=== PATIENT | female | born 1990 ===

== ENCOUNTER 2017-11-25 11:12 | Emergency (ER) | payer MEDICAID, OTHER ==
[2017-11-25 12:33] LABS: Urine Appearance Clear; Urine Blood Negative (Negative); Urine Color Yellow; Urine Ketones Negative (Negative); Urine Protein Negative (Negative); Urine Specific Gravity 1.013 (1.010-1.030); Urine Urobilinogen Negative (Negative)
[2017-11-25 13:12] LABS: ABS Basophils 0 10^3/ul (0-0.2); ABS Eosinophils 0.1 10^3/ul (0-0.6); ABS Lymphocytes 1.4 10^3/ul (1.0-4.8); ABS Monocytes 0.5 10^3/ul (0-0.8); ABS Neutrophils 3.9 10^3/ul (1.5-7.7); ABS Nucleated RBC 0 10^3/ul; Eosinophil % 1.5 % (0-6); Hematocrit 42 % (35-47); Lymphocyte % 23.4 % (25-47); Mean Corpuscular HGB Conc 34 g/dl (31-36); Mean Corpuscular Hemoglobin 30 pg (27-31); Mean Corpuscular Volume 90 fL (80-97); Mean Platelet Volume 10.9 um3 (7.4-10.4); Nucleated Red Blood Cells % 0.1; Platelet Count 156 10^3/ul (150-450); Red Blood Count 4.62 10^6/ul (4.0-5.4); Red Cell Distribution Width 13 % (10.5-15); White Blood Count 5.8 10^3/ul (3.5-10.8)
--- NOTE | 2017-11-25 14:47 | PN ---
ED Flex Patient Progress Note Date of Service: 11/25/17 Subjective: ED Flex day #1 for this 27 y.o. female with a history of alcohol dependence and depression who is a resident of the [facility] [[email or web address] inpatient substance abuse facility in [place] who apparently made suicidal statements to staff at rehab. Objective: Depressed white female with passive SI Assessment: Unspecified Depressive DO Plan: Patient is appropriate for admission but we have no beds available. Will explore transfer to another facility. Vital Signs Temp Pulse Resp BP Pulse Ox 98.1 F 91 16 115/79 100 11/25/17 11:15 11/25/17 11:15 11/25/17 11:15 11/25/17 11:15 11/25/17 11:15 Lab Results - Entire Visit 11/25/17 11/25/17 11/25/17 12:59 12:59 12:05 WBC 5.8 RBC 4.62 Hgb 14.0 Hct 42 MCV 90 MCH 30 MCHC 34 RDW 13 Plt Count 156 MPV 10.9 H Neut % (Auto) 66.6 Lymph % (Auto) 23.4 L [place] % (Auto) 8.0 H Eos % (Auto) 1.5 Baso % (Auto) 0.5 Absolute Neuts (auto) 3.9 Absolute Lymphs (auto) 1.4 Absolute Monos (auto) 0.5 Absolute Eos (auto) 0.1 Absolute Basos (auto) 0 Absolute Nucleated RBC 0 Nucleated RBC % 0.1 Sodium 138 L Potassium 3.7 Chloride 104 Carbon Dioxide 24 Anion Gap 10 BUN 8 Creatinine 0.78 Est GFR ( Amer) 115.7 Est GFR (Non-Af Amer) 90.0 BUN/Creatinine Ratio 10.3 Glucose 115 H Calcium 9.1 Total Bilirubin 0.70 AST 14 ALT 15 Alkaline Phosphatase 54 Total Protein 6.7 Albumin 4.2 Globulin 2.5 Albumin/Globulin Ratio 1.7 TSH 2.43 Beta HCG, Quant < 0.60 Urine Color Yellow Urine Appearance Clear Urine pH 6.0 Ur Specific [place] 1.013 Urine Protein Negative Urine Ketones Negative Urine Blood Negative Urine Nitrate Negative Urine Bilirubin Negative Urine Urobilinogen Negative Ur Leukocyte Esterase Negative Urine Glucose Negative Urine Ascorbic Acid * A Salicylates < 2.50 Urine Opiates Screen Acetaminophen < 15 Ur Barbiturates Screen Ur Phencyclidine Scrn Ur Amphetamines Screen U Benzodiazepines Scrn Urine Cocaine Screen U Cannabinoids Screen Serum Alcohol < 10 11/25/17 12:05 WBC RBC Hgb Hct MCV MCH MCHC RDW Plt Count MPV Neut % (Auto) Lymph % (Auto) [place] % (Auto) Eos % (Auto) Baso % (Auto) Absolute Neuts (auto) Absolute Lymphs (auto) Absolute Monos (auto) Absolute Eos (auto) Absolute Basos (auto) Absolute Nucleated RBC Nucleated RBC % Sodium Potassium Chloride Carbon Dioxide Anion Gap BUN Creatinine Est GFR ( Amer) Est GFR (Non-Af Amer) BUN/Creatinine Ratio Glucose Calcium Total Bilirubin AST ALT Alkaline Phosphatase Total Protein Albumin Globulin Albumin/Globulin Ratio TSH Beta HCG, Quant Urine Color Urine Appearance Urine pH Ur Specific [place] Urine Protein Urine Ketones Urine Blood Urine Nitrate Urine Bilirubin Urine Urobilinogen Ur Leukocyte Esterase Urine Glucose Urine Ascorbic Acid Salicylates Urine Opiates Screen None detected Acetaminophen Ur Barbiturates Screen None detected Ur Phencyclidine Scrn None detected Ur Amphetamines Screen None detected U Benzodiazepines Scrn None detected Urine Cocaine Screen None detected U Cannabinoids Screen None detected Serum Alcohol
--- NOTE | 2017-11-25 15:16 | ED ---
Mara Rosen Thomas, scribed for Phillip Denis MD on 11/25/17 at 1203 . Psychiatric Complaint <Miesha Orosco - Last Filed: 11/25/17 15:10> - HPI Summary HPI Summary: The patient is a 27 with a history of anxiety and depression presenting from [facility]. She complains of suicidal thoughts that worsened last night. She has a plan to use something sharp to commit suicide. She denies any recent alcohol or drug intake. She is on Effexor. - History Of Current Complaint Hx Obtained From: Patient Onset/Duration: Still Present, Worse Since - last night Timing: Intermittent Episode Lasting Severity Currently: Moderate Character: Depressed, Anxious Aggravating Factor(s): Nothing Alleviating Factor(s): Nothing Related History: Positive For: Prior Psychiatric Issues Has Suicidal: Reports: Thoughts, With A Plan Ingestion History: Type/Name Of Drug - of ETOH abuse but no recent alcohol intake <Phillip Denis - Last Filed: 11/25/17 15:16> - History Of Current Complaint Chief Complaint: EDMentalHealth Time Seen by Provider: 11/25/17 11:17 - Allergies/Home Medications Allergies/Adverse Reactions: Allergies Allergy/AdvReac Type Severity Reaction Status Date / Time No Known Allergies Allergy Verified 11/25/17 11:16 Home Medications: Home Medications Acetaminophen TAB* [Tylenol TAB*] 325 mg PO Q6H PRN MDD 3,500mg 11/25/17 [ History Confirmed 11/25/17] Aspirin EC TAB* [Ecotrin EC TAB*] 325 mg PO DAILY 11/25/17 [History Confirmed ] Bismuth Subsalicylate [Bismuth] 262 mg PO Q30M MDD 8 tablets 11/25/17 [History Confirmed 11/25/17] Calcium Carbonate CHEW TAB* [Tums*] 500 - 1,000 mg PO BID MDD 8 tablets [History Confirmed 11/25/17] Docusate CAP* [Colace Cap*] 100 mg PO BID PRN 11/25/17 [History Confirmed ] Eucalyptus/Menthol [Garza Cough Drops] 1 aby PO Q2H PRN 11/25/17 [History Confirmed 11/25/17] Ibuprofen TAB* [Advil TAB*] 200 mg PO Q6H PRN 11/25/17 [History Confirmed ] Magnesium Hydroxide LIQ* [Milk of Magnesia LIQ*] 60 ml PO DAILY PRN 11/25/17 [ History Confirmed 11/25/17] Melatonin (NF) [Meladox] 5 mg PO BEDTIME PRN 11/25/17 [History Confirmed ] Multivitamins/Minerals TAB* [Theragran/minerals TAB*] 1 tab PO DAILY 11/25/17 [ History Confirmed 11/25/17] Naltrexone INJ [Vivitrol INJ] 380 mg IM MONTHLY 11/25/17 [History Confirmed ] Nicotine GUM* 2 mg PO Q4H PRN 11/25/17 [History Confirmed 11/25/17] Nicotine PATCH 14 MG/24 HR* 14 mg TRANSDERM QAM 11/25/17 [History Confirmed ] Polyethylene Glycol 3350* [Miralax*] 17 gm PO DAILY PRN 11/25/17 [History Confirmed 11/25/17] Ranitidine TAB (NF) [Zantac TAB (NF)] 300 mg PO QPM 11/25/17 [History Confirmed 11/25/17] Saline NASAL SPRAY 0.65%* [Sodium Chloride 0.65% Nasal [place]*] 1 - 2 spray BOTH NARES Q4H PRN 11/25/17 [History Confirmed 11/25/17] Venlafaxine EXT RELEASE CAP* [Effexor Xr CAP*] 150 mg PO BEDTIME 11/25/17 [ History Confirmed 11/25/17] diPHENhydraMINE PO* [Benadryl PO 25 MG TAB*] 25 - 50 mg PO Q6H PRN 11/25/17 [ History Confirmed 11/25/17] guaiFENesin ER TAB [Mucinex*] 600 - 1,200 mg PO BID PRN 11/25/17 [History Confirmed 11/25/17] PMH/Surg Hx/FS Hx/Imm Hx Opthamlomology History: Denies: Hx Legally Blind EENT History: Denies: Hx Deafness Psychiatric History: Reports: Hx Anxiety, Hx Depression Infectious Disease History: No Infectious Disease History: Denies: Traveled Outside the [place] in Last 30 Days - Family History Known Family History: Positive: Other - Patient denies relevant FHx - Social History Occupation: Unemployed Lives: [facility] - [facility] Alcohol Use: in rehab Substance Use Type: Reports: Marijuana Substance Use Comment - Amount & Last Used: rarely Smoking Status (MU): Current Every Day Smoker <Phillip Denis - Last Filed: 11/25/17 15:16> Review of Systems Negative: Fever Positive: Other - Suicidal ideation with a plan All Other Systems Reviewed And Are Negative: Yes <Phillip Denis - Last Filed: 11/25/17 15:16> Physical Exam Vital Signs On Initial Exam: Initial Vitals Temp Pulse Resp BP Pulse Ox 98.1 F 91 16 115/79 100 11/25/17 11:15 11/25/17 11:15 11/25/17 11:15 11/25/17 11:15 11/25/17 11:15 <Miesha Orosco Chela - Last Filed: 11/25/17 15:10> - Summary Physical Exam Summary: General: well-appearing, no pain distress Skin: warm, color reflects adequate perfusion, dry Head: normal Eyes: EOMI, VIOLETTA ENT: normal Neck: supple, nontender Respiratory: CTA, breath sounds present Cardiovascular: RRR Abdomen: soft, nontender Bowel: present Musculoskeletal: normal, strength/ROM intact Neurological: normal, sensory/motor intact, A&O x3 Psychological: Suicidal ideation with a plan Triage Information Reviewed: Yes Vital Signs On Initial Exam: Initial Vitals Temp Pulse Resp BP Pulse Ox 98.1 F 91 16 115/79 100 11/25/17 11:15 11/25/17 11:15 11/25/17 11:15 11/25/17 11:15 11/25/17 11:15 Vital Signs Reviewed: Yes <Phillip Denis - Last Filed: 11/25/17 15:16> Diagnostics - Vital Signs Vital Signs Temp Pulse Resp BP Pulse Ox 11/25/17 11:15 98.1 F 91 16 115/79 100 - Laboratory Lab Results: Lab Results 11/25/17 11/25/17 11/25/17 Range/Units 12:05 12:05 12:59 WBC (3.5-10.8) 10^3/ul RBC (4.0-5.4) 10^6/ul Hgb (12.0-16.0) g/dl Hct (35-47) % MCV (80-97) fL MCH (27-31) pg MCHC (31-36) g/dl RDW (10.5-15) % Plt Count (150-450) 10^3/ul MPV (7.4-10.4) um3 Neut % (Auto) (38-83) % Lymph % (Auto) (25-47) % [place] % (Auto) (0-7) % Eos % (Auto) (0-6) % Baso % (Auto) (0-2) % Absolute Neuts (auto) (1.5-7.7) 10^3/ul Absolute Lymphs (auto) (1.0-4.8) 10^3/ul Absolute Monos (auto) (0-0.8) 10^3/ul Absolute Eos (auto) (0-0.6) 10^3/ul Absolute Basos (auto) (0-0.2) 10^3/ul Absolute Nucleated RBC 10^3/ul Nucleated RBC % Sodium 138 L (139-145) mmol/L Potassium 3.7 (3.5-5.0) mmol/L Chloride 104 (101-111) mmol/L Carbon Dioxide 24 (22-32) mmol/L Anion Gap 10 (2-11) mmol/L BUN 8 (6-24) mg/dL Creatinine 0.78 (0.51-0.95) mg/dL Est GFR ( Amer) 115.7 (>60) Est GFR (Non-Af Amer) 90.0 (>60) BUN/Creatinine Ratio 10.3 (8-20) Glucose 115 H (70-100) mg/dL Calcium 9.1 (8.6-10.3) mg/dL Total Bilirubin 0.70 (0.2-1.0) mg/dL AST 14 (13-39) U/L ALT 15 (7-52) U/L Alkaline Phosphatase 54 (34-104) U/L Total Protein 6.7 (6.4-8.9) g/dL Albumin 4.2 (3.2-5.2) g/dL Globulin 2.5 (2-4) g/dL Albumin/Globulin Ratio 1.7 (1-3) TSH 2.43 (0.34-5.60) mcIU/mL Beta HCG, Quant < 0.60 mIU/mL Urine Color Yellow Urine Appearance Clear Urine pH 6.0 (5-9) Ur Specific [place] 1.013 (1.010-1.030) Urine Protein Negative (Negative) Urine Ketones Negative (Negative) Urine Blood Negative (Negative) Urine Nitrate Negative (Negative) Urine Bilirubin Negative (Negative) Urine Urobilinogen Negative (Negative) Ur Leukocyte Esterase Negative (Negative) Urine Glucose Negative (Negative) Urine Ascorbic Acid * A (Negative) Salicylates < 2.50 (<30) mg/dL Urine Opiates Screen None detected (None Detect) Acetaminophen < 15 mcg/mL Ur Barbiturates Screen None detected (None Detect) Ur Phencyclidine Scrn None detected (None Detect) Ur Amphetamines Screen None detected (None Detect) U Benzodiazepines Scrn None detected (None Detect) Urine Cocaine Screen None detected (None Detect) U Cannabinoids Screen None detected (None Detect) Serum Alcohol < 10 (<10) mg/dL 11/25/17 Range/Units 12:59 WBC 5.8 (3.5-10.8) 10^3/ul RBC 4.62 (4.0-5.4) 10^6/ul Hgb 14.0 (12.0-16.0) g/dl Hct 42 (35-47) % MCV 90 (80-97) fL MCH 30 (27-31) pg MCHC 34 (31-36) g/dl RDW 13 (10.5-15) % Plt Count 156 (150-450) 10^3/ul MPV 10.9 H (7.4-10.4) um3 Neut % (Auto) 66.6 (38-83) % Lymph % (Auto) 23.4 L (25-47) % [place] % (Auto) 8.0 H (0-7) % Eos % (Auto) 1.5 (0-6) % Baso % (Auto) 0.5 (0-2) % Absolute Neuts (auto) 3.9 (1.5-7.7) 10^3/ul Absolute Lymphs (auto) 1.4 (1.0-4.8) 10^3/ul Absolute Monos (auto) 0.5 (0-0.8) 10^3/ul Absolute Eos (auto) 0.1 (0-0.6) 10^3/ul Absolute Basos (auto) 0 (0-0.2) 10^3/ul Absolute Nucleated RBC 0 10^3/ul Nucleated RBC % 0.1 Sodium (139-145) mmol/L Potassium (3.5-5.0) mmol/L Chloride (101-111) mmol/L Carbon Dioxide (22-32) mmol/L Anion Gap (2-11) mmol/L BUN (6-24) mg/dL Creatinine (0.51-0.95) mg/dL Est GFR ( Amer) (>60) Est GFR (Non-Af Amer) (>60) BUN/Creatinine Ratio (8-20) Glucose (70-100) mg/dL Calcium (8.6-10.3) mg/dL Total Bilirubin (0.2-1.0) mg/dL AST (13-39) U/L ALT (7-52) U/L Alkaline Phosphatase (34-104) U/L Total Protein (6.4-8.9) g/dL Albumin (3.2-5.2) g/dL Globulin (2-4) g/dL Albumin/Globulin Ratio (1-3) TSH (0.34-5.60) mcIU/mL Beta HCG, Quant mIU/mL Urine Color Urine Appearance Urine pH (5-9) Ur Specific [place] (1.010-1.030) Urine Protein (Negative) Urine Ketones (Negative) Urine Blood (Negative) Urine Nitrate (Negative) Urine Bilirubin (Negative) Urine Urobilinogen (Negative) Ur Leukocyte Esterase (Negative) Urine Glucose (Negative) Urine Ascorbic Acid (Negative) Salicylates (<30) mg/dL Urine Opiates Screen (None Detect) Acetaminophen mcg/mL Ur Barbiturates Screen (None Detect) Ur Phencyclidine Scrn (None Detect) Ur Amphetamines Screen (None Detect) U Benzodiazepines Scrn (None Detect) Urine Cocaine Screen (None Detect) U Cannabinoids Screen (None Detect) Serum Alcohol (<10) mg/dL Result Diagrams: 11/25/17 12:59 11/25/17 12:59 Lab Statement: Any lab studies that have been ordered have been reviewed, and results considered in the medical decision making process. <Miesha Orosco - Last Filed: 11/25/17 15:10> - Vital Signs Vital Signs Temp Pulse Resp BP Pulse Ox 11/25/17 11:15 98.1 F 91 16 115/79 100 - Laboratory Lab Results: Lab Results 11/25/17 11/25/17 11/25/17 Range/Units 12:05 12:05 12:59 WBC (3.5-10.8) 10^3/ul RBC (4.0-5.4) 10^6/ul Hgb (12.0-16.0) g/dl Hct (35-47) % MCV (80-97) fL MCH (27-31) pg MCHC (31-36) g/dl RDW (10.5-15) % Plt Count (150-450) 10^3/ul MPV (7.4-10.4) um3 Neut % (Auto) (38-83) % Lymph % (Auto) (25-47) % [place] % (Auto) (0-7) % Eos % (Auto) (0-6) % Baso % (Auto) (0-2) % Absolute Neuts (auto) (1.5-7.7) 10^3/ul Absolute Lymphs (auto) (1.0-4.8) 10^3/ul Absolute Monos (auto) (0-0.8) 10^3/ul Absolute Eos (auto) (0-0.6) 10^3/ul Absolute Basos (auto) (0-0.2) 10^3/ul Absolute Nucleated RBC 10^3/ul Nucleated RBC % Sodium 138 L (139-145) mmol/L Potassium 3.7 (3.5-5.0) mmol/L Chloride 104 (101-111) mmol/L Carbon Dioxide 24 (22-32) mmol/L Anion Gap 10 (2-11) mmol/L BUN 8 (6-24) mg/dL Creatinine 0.78 (0.51-0.95) mg/dL Est GFR ( Amer) 115.7 (>60) Est GFR (Non-Af Amer) 90.0 (>60) BUN/Creatinine Ratio 10.3 (8-20) Glucose 115 H (70-100) mg/dL Calcium 9.1 (8.6-10.3) mg/dL Total Bilirubin 0.70 (0.2-1.0) mg/dL AST 14 (13-39) U/L ALT 15 (7-52) U/L Alkaline Phosphatase 54 (34-104) U/L Total Protein 6.7 (6.4-8.9) g/dL Albumin 4.2 (3.2-5.2) g/dL Globulin 2.5 (2-4) g/dL Albumin/Globulin Ratio 1.7 (1-3) TSH 2.43 (0.34-5.60) mcIU/mL Beta HCG, Quant < 0.60 mIU/mL Urine Color Yellow Urine Appearance Clear Urine pH 6.0 (5-9) Ur Specific [place] 1.013 (1.010-1.030) Urine Protein Negative (Negative) Urine Ketones Negative (Negative) Urine Blood Negative (Negative) Urine Nitrate Negative (Negative) Urine Bilirubin Negative (Negative) Urine Urobilinogen Negative (Negative) Ur Leukocyte Esterase Negative (Negative) Urine Glucose Negative (Negative) Urine Ascorbic Acid * A (Negative) Salicylates < 2.50 (<30) mg/dL Urine Opiates Screen None detected (None Detect) Acetaminophen < 15 mcg/mL Ur Barbiturates Screen None detected (None Detect) Ur Phencyclidine Scrn None detected (None Detect) Ur Amphetamines Screen None detected (None Detect) U Benzodiazepines Scrn None detected (None Detect) Urine Cocaine Screen None detected (None Detect) U Cannabinoids Screen None detected (None Detect) Serum Alcohol < 10 (<10) mg/dL 11/25/17 Range/Units 12:59 WBC 5.8 (3.5-10.8) 10^3/ul RBC 4.62 (4.0-5.4) 10^6/ul Hgb 14.0 (12.0-16.0) g/dl Hct 42 (35-47) % MCV 90 (80-97) fL MCH 30 (27-31) pg MCHC 34 (31-36) g/dl RDW 13 (10.5-15) % Plt Count 156 (150-450) 10^3/ul MPV 10.9 H (7.4-10.4) um3 Neut % (Auto) 66.6 (38-83) % Lymph % (Auto) 23.4 L (25-47) % [place] % (Auto) 8.0 H (0-7) % Eos % (Auto) 1.5 (0-6) % Baso % (Auto) 0.5 (0-2) % Absolute Neuts (auto) 3.9 (1.5-7.7) 10^3/ul Absolute Lymphs (auto) 1.4 (1.0-4.8) 10^3/ul Absolute Monos (auto) 0.5 (0-0.8) 10^3/ul Absolute Eos (auto) 0.1 (0-0.6) 10^3/ul Absolute Basos (auto) 0 (0-0.2) 10^3/ul Absolute Nucleated RBC 0 10^3/ul Nucleated RBC % 0.1 Sodium (139-145) mmol/L Potassium (3.5-5.0) mmol/L Ch[place] (101-111) mmol/L Carbon Dioxide (22-32) mmol/L Anion Gap (2-11) mmol/L BUN (6-24) mg/dL Creatinine (0.51-0.95) mg/dL Est GFR ( Amer) (>60) Est GFR (Non-Af Amer) (>60) BUN/Creatinine Ratio (8-20) Glucose (70-100) mg/dL Calcium (8.6-10.3) mg/dL Total Bilirubin (0.2-1.0) mg/dL AST (13-39) U/L ALT (7-52) U/L Alkaline Phosphatase (34-104) U/L Total Protein (6.4-8.9) g/dL Albumin (3.2-5.2) g/dL Globulin (2-4) g/dL Albumin/Globulin Ratio (1-3) TSH (0.34-5.60) mcIU/mL Beta HCG, Quant mIU/mL Urine Color Urine Appearance Urine pH (5-9) Ur Specific [place] (1.010-1.030) Urine Protein (Negative) Urine Ketones (Negative) Urine Blood (Negative) Urine Nitrate (Negative) Urine Bilirubin (Negative) Urine Urobilinogen (Negative) Ur Leukocyte Esterase (Negative) Urine Glucose (Negative) Urine Ascorbic Acid (Negative) Salicylates (<30) mg/dL Urine Opiates Screen (None Detect) Acetaminophen mcg/mL Ur Barbiturates Screen (None Detect) Ur Phencyclidine Scrn (None Detect) Ur Amphetamines Screen (None Detect) U Benzodiazepines Scrn (None Detect) Urine Cocaine Screen (None Detect) U Cannabinoids Screen (None Detect) Serum Alcohol (<10) mg/dL Result Diagrams: 11/25/17 12:59 11/25/17 12:59 Lab Statement: Any lab studies that have been ordered have been reviewed, and results considered in the medical decision making process. <Phillip Denis - Last Filed: 11/25/17 15:16> Course/Dx <Miesha Orosco - Last Filed: 11/25/17 15:10> - Course Course Of Treatment: PATIENT WILL BE ADMITTED TO [facility]HU, EITHER HERE OR AT ANOTHER FACILITY. Assessment/Plan: Medications reviewed. <Phillip Denis - Last Filed: 11/25/17 15:16> - Differential Dx/Clinical Impression Provider Diagnosis: Suicidal ideations, Depression Discharge <Miesha Orosco - Last Filed: 11/25/17 15:10> - Sign-Out/Discharge Documenting (check all that apply): Discharge - Billing Disposition and Condition Condition: STABLE Disposition: PSY-OTH <Phillip Denis - Last Filed: 11/25/17 15:16> - Discharge Plan Condition: Stable Disposition: PSYCHIATRIC FACILITY-OTHER Referrals: Muriel Jacobs PA [Primary Care Provider] - The documentation as recorded by the Mara morales Thomas accurately reflects the service I personally performed and the decisions made by , Phillip Denis MD.
[2017-11-25] MEDS ORDERED: Acetaminophen TAB* 325 MG PO ONE (15:36)
[2017-11-25] MEDS ORDERED: Nicotine GUM* 2 MG ONE (15:41)
[2017-11-25] MEDS: Nicotine GUM* 2 MG PO PRN ×2 (15:44→22:07)
[2017-11-25] MEDS: Venlafaxine EXT RELEASE CAP* 75 MG PO ONE ×2 (21:55→21:57)
--- NOTE | 2017-11-26 06:48 | ED ---
Derik Rosen Nikita, scribed for Sanju Mcneil MD on 11/26/17 at 0435 . Progress - Progress Note Progress Note: This patient was signed out from Dr. Denis, awaiting bed at [facility]. The patient has been stable thru the night. This patient is signed out to Dr. Denis, awaiting bed at [facility]. - Consult/PCP Time Called: 14:34 Course/Dx - Course Course Of Treatment: PATIENT WILL BE ADMITTED TO [facility], EITHER HERE OR AT ANOTHER FACILITY. - Diagnoses Provider Diagnoses: Suicidal ideations, Depression Discharge - Sign-Out/Discharge Documenting (check all that apply): Sign-Out Patient Signing out patient TO: Phillip Denis - Discharge Plan Condition: Stable Disposition: PSYCHIATRIC FACILITY-OTHER Referrals: Muriel Jacobs PA [Primary Care Provider] - - Billing Disposition and Condition Condition: STABLE Disposition: PSY-OTH The documentation as recorded by the Derik morales Nikita accurately reflects the service I personally performed and the decisions made by , Sanju Mcneil MD.
[2017-11-26] MEDS ORDERED: Ibuprofen TAB* 200 MG PO SCH (08:00)
[2017-11-26] MEDS ORDERED: Venlafaxine EXT RELEASE CAP* 75 MG PO ONE (08:01)
[2017-11-26] MEDS ORDERED: Multivitamins/Minerals TAB PO SCH (09:00)
--- NOTE | 2017-11-26 09:49 | PN ---
Progress Note - Progress Note Date of Service: 11/26/17 Note: ED Flex day #2 for this 27 y.o. female with a history of alcohol dependence and depression who is a resident of the [facility] inpatient substance abuse facility in [place] who apparently made suicidal statements to staff at rehab. Subjective: Patient denies any complaints or concerns at this time. Reports no need for medications or additions to medical plan established for patient. Slept well. Objective: VS stable No change to current medications Alert and cooperative and resting comfortably. Appearance: WDW, comfortable, pleasant, alert Skin: Soft dry skin, no lesions. Eyes: VIOLETTA, EOMI, Conjunctiva pink with no redness or exudates. Neck: Full range of motion. Pulm: Chest symmetrical expansion. No deformities on posterior chest wall. Lungs clear to auscultation and percussion, without adventitious sounds. CV: Heart soundsRRR, Normal S1 and single S2. No S3, S4, rubs, or murmurs. Musculoskeletal: ROM WNL in all extremities. No deformities noted. Neuro: A&OX3 Psych: Logical, coherent Assessment: Patient has participated in plan with compliance. I have made myself available to this patient should she need anything. Dx at this time remains passive suicidal ideation. Plan: Continue mediations as prescribed. Will continue to monitor psych behaviors and need for any medication. Will provide a patient to provider assessment within every 24 hours during stay until safe discharge/transfer/ admission plan is established.
[2017-11-26] MEDS: Nicotine GUM* 2 MG PO PRN (11:58)
[2017-11-26] MEDS ORDERED: Nicotine PATCH 14 MG/24 HR* PATCH ONE (12:10)
[2017-11-26] MEDS ORDERED: Nicotine PATCH 14 MG/24 HR* PATCH TRANSDERM ONE (12:26)
[2017-11-26 13:14] VITALS: BP 112/75
[2017-11-27] MEDS ORDERED: Nicotine Patch Removal NOTE PATCH OFF ONE (06:00)
== END 2017-11-26 13:12 ==
LOC: ED 11:12
DX: F32.9 Major depressive disorder, single episode, unspecified (principal); R45.851 Suicidal ideations; F10.20 Alcohol dependence, uncomplicated; F17.200 Nicotine dependence, unspecified, uncomplicated
CPT/HCPCS: 36415; 80053; 80307; 80320; 80329; 81003; 84443; 84702; 85025; 99283; A9270-GY; G0480